=== PATIENT | male | born 1970 | race Caucasian/White ===

== ENCOUNTER 2018-09-15 11:59 | Emergency (ER) | payer MEDICAID ==
[~2018-09-15] VITALS: Wt 72.1 kg
[2018-09-15 12:05] VITALS: BP 156/92; PULSE 81; RESP 18
--- NOTE | 2018-09-15 13:05 | ERD ---
ER Documentation Chief Complaint Chief Complaint DIZZINESS WITH NAUSEA X 2 DAYS , WORSEN WHEN BEND OVER HPI 47-year-old male, previously healthy, presents to the emergency department, complaining of 2 days with nausea and dizziness described as a spinning sensation. The symptoms are worsened by changes in position. The patient de nies headaches, no chest pain, no palpitations, no blurred vision, no distal weakness, numbness or tingling. ROS All systems reviewed and are negative except as per history of present illness. Medications Home Meds Active Scripts Ondansetron Hcl* (Zofran*) 4 Mg Tablet, 4 MG PO Q8H PRN for NAUSEA AND/OR VOMITING, #15 TAB Prov:SEBASTIÁN FULTON MD 09/15/18 Meclizine Hcl* (Antivert*) 12.5 Mg Tab, 12.5 MG PO Q6H PRN for DIZZINESS, #20 TAB Prov:SEBASTIÁN FULTON MD 09/15/18 Allergies Allergies: Coded Allergies: No Known Allergy (Unverified , 09/15/18) PMhx/Soc The patient reports history of thyroid disease, status post surgery currently on levothyroxine. He also reports history of hypertension and BPH. Hx Alcohol Use: No Hx Substance Use: No Hx Tobacco Use: No FmHx Family History: No diabetes, No coronary disease Physical Exam Vitals Vital Signs Date Temp Pulse Resp B/P (MAP) Pulse Ox O2 O2 Flow FiO2 Time Delivery Rate 09/15/18 98.0 81 18 156/92 99 12:05 (113) Physical Exam Const: No acute distress Head: Atraumatic Eyes: Normal Conjunctiva ENT: Normal External Ears, Nose and Mouth. Neck: Full range of motion. No meningismus. Resp: Clear to auscultation bilaterally Cardio: Regular rate and rhythm, no murmurs Abd: Soft, non tender, non distended. Normal bowel sounds Skin: No petechiae or rashes Back: No midline or flank tenderness Ext: No cyanosis, or edema Neur: Awake and alert Psych: Normal Mood and Affect Result Diagram: 09/15/18 1339 09/15/18 1339 Results 24 hrs Laboratory Tests Test 09/15/18 13:38 09/15/18 13:39 Urine Color YELLOW Urine Clarity SLIGHTLY CLOUDY Urine pH 7.0 Urine Specific Force 1.021 Urine Ketones TRACE mg/dL Urine Nitrite NEGATIVE mg/dL Urine Bilirubin NEGATIVE mg/dL Urine Urobilinogen NEGATIVE mg/dL Urine Leukocyte Esterase NEGATIVE Enriqueta/ul Urine Microscopic RBC 4 /HPF Urine Microscopic WBC 3 /HPF Urine Bacteria FEW /HPF Urine Mucus FEW /HPF Urine Hemoglobin NEGATIVE mg/dL Urine Glucose NEGATIVE mg/dL Urine Total Protein 1+ mg/dl White Blood Count 12.6 10^3/ul Red Blood Count 5.76 10^6/ul Hemoglobin 17.8 g/dl Hematocrit 50.2 % Mean Corpuscular Volume 87.2 fl Mean Corpuscular Hemoglobin 30.9 pg Mean Corpuscular Hemoglobin Concent 35.5 g/dl Red Cell Distribution Width 11.4 % Platelet Count 282 10^3/UL Mean Platelet Volume 8.7 fl Immature Granulocytes % 0.900 % Neutrophils % 81.1 % Lymphocytes % 13.5 % Monocytes % 3.7 % Eosinophils % 0.1 % Basophils % 0.7 % Nucleated Red Blood Cells % 0.0 /100WBC Immature Granulocytes # 0.110 10^3/ul Neutrophils # 10.2 10^3/ul Lymphocytes # 1.7 10^3/ul Monocytes # 0.5 10^3/ul Eosinophils # 0.0 10^3/ul Basophils # 0.1 10^3/ul Nucleated Red Blood Cells # 0.0 10^3/ul Sodium Level 142 mmol/L Potassium Level 4.3 mmol/L Chloride Level 104 mmol/L Carbon Dioxide Level 25 mmol/L Anion Gap 13 Blood Urea Nitrogen 13 mg/dl Creatinine 0.65 mg/dl Est Glomerular Filtrat Rate mL/min > 60 mL/min Glucose Level 148 mg/dl Calcium Level 9.4 mg/dl Thyroid Stimulating Hormone (TSH) 0.030 MIU/L Current Medications Medications Dose Sig/Harjit Start Time Status Last (Trade) Ordered Route PRN Stop Time Admin Dose Reason Admin Ondansetron 8 mg ONCE STAT 09/15/18 DC 09/15/18 HCl (Zofran ODT 13:11 09/15/18 13:31 Odt) 13:23 Meclizine 12.5 mg ONCE ONCE 09/15/18 DC 09/15/18 HCl PO 13:30 09/15/18 13:31 (Antivert) 13:31 Lorazepam 0.5 mg ONCE ONCE 09/15/18 DC 09/15/18 (Ativan) PO 13:30 09/15/18 13:31 13:31 Ondansetron 2 mg ONCE STAT 09/15/18 DC 09/15/18 HCl (Zofran IM 13:55 09/15/18 14:03 Inj) 13:56 EKG read by me: Rate/Rhythm: Regular rate and rhythm at a rate of 67 Intervals: Normal No acute ST changes. No T wave inversion Impression: No evidence of acute ischemia or arrhythmia Procedures/MDM Vital signs stable, neurovascular exam revealed horizontal nystagmus while the patient was looking straight ahead with mildly abnormal head impulse test. Differential diagnosis include but not limited to dehydration, cardiac arrhythmia, , Mnire's disease, vestibular neuronitis, migraine, vertigo, side effects of the medications, hypoglycemia. Less likely but is still a possibility, intracranial hemorrhage, ischemic stroke, [employer] neoplasm. Physical examination and clinical presentation consistent most likely with positional vertigo, likely exacerbated by a hyperthyroid state without evidence of thyrotoxicosis. During the ED course the patient remained stable, significant improvement of the symptoms with the medications given in the emergency department. Results and clinical impression discussed with patient who agrees with management. The patient is stable to be treated outpatient and will be discharged home with instructions to follow up with the primary care provider in the next 48h. If symptoms persist, worsen or new symptoms develop, then patient should return to the ED immediately. Instructions explained and given directly by me to the patient with acknowledgment and demonstrated understanding. Disclaimer: Inadvertent spelling and grammatical errors are likely due to EHR/dictation software use and do not reflect on the overall quality of patient care. Also, please note that the electronic time recorded on this note does not necessarily reflect the actual time of the patient encounter. Departure Diagnosis: Primary Impression: Positional vertigo Additional Impression: Hyperthyroidism Condition: Stable Additional Instructions: Muchas naz por [facility] para ward servicio. Esperamos que en ward visita a la adolph de emergencia ward problema medico haya sido solucionado y que se sienta mucho mejor. Para estar seguros que ward mejoria sigue en proceso, le pedimos el favor de hacer dragan phillip de seguimiento medico con ward doctor primario en los proximos 2-4 diop. Lleve con usted estos documentos y las medicinas recetadas. Si luiza sintomas empeoran, NO SE ESPERE, por favor regrese a adolph de emergencia INMEDIATAMENTE. En nehemias que usted no tenga un mdico de atencin primaria: Llame al mdico o clnica comunitaria de referencia que aparece abajo suri las horas de consultorio para hacer dragan phillip para que le vean. CLINICAS: [facility] [id number] [facility] [phone] [facility] [phone] [facility] [facility] [phone] [facility] [facility] [phone] [facility] [phone] SEBASTIÁN MCKEON MD September 15, 2018 13:05
[2018-09-15] MEDS ORDERED: ONDANSETRON (ODT) 4 MG TAB ODT STA (13:11)
[2018-09-15] MEDS ORDERED: MECLIZINE 12.5 MG TAB PO ONE (13:30)
[2018-09-15] MEDS ORDERED: LORAZEPAM 0.5 MG TAB PO ONE (13:30)
[2018-09-15] MEDS ORDERED: ONDANSETRON 4 MG INJ IM STA (13:55)
[2018-09-15] MEDS ORDERED: MECL12.574 PO (14:52)
[2018-09-15] MEDS ORDERED: ONDA4TAB8 PO (14:52)
== END 2018-09-15 15:01 | disposition home or self-care (01) ==
LOC: FTE 11:59 → EDSEX 11:59 → FTE 15:01
DX: H81.10 Benign paroxysmal vertigo, unspecified ear (principal); E03.9 Hypothyroidism, unspecified; I10 Essential (primary) hypertension
CPT/HCPCS: 70450; 80048; 81001; 84443; 85025; 93005; 96372; J2405; Z7502; Z7610